=== PATIENT | female | born 1950 | race Caucasian/White ===

== ENCOUNTER 2024-07-16 06:25 | Inpatient (IN) | payer MEDICARE, OTHER ==
[2024-07-15 09:02] VITALS: BMI 22.1
[2024-07-16] MEDS ORDERED: Vancomycin 1 GM VIAL ONE (06:33)
[2024-07-16] MEDS ORDERED: Thrombin 5000 UNITS/5 ML VIAL ONE (06:33)
[2024-07-16] MEDS ORDERED: CEFAZOLIN 2 GM VIAL ONE (06:49)
[2024-07-16] MEDS ORDERED: Rocuronium Bromide 10 MG/ML (10ML VIAL) ONE (07:02)
[2024-07-16] MEDS ORDERED: PROPOFOL 20 ML ONE (07:02)
[2024-07-16] MEDS ORDERED: Lidocaine 2% PF 5 ML VIAL ONE (07:02)
[2024-07-16] MEDS ORDERED: Fentanyl 250 MCG/5 ML VIAL ONE ×2 (07:02→10:35)
[2024-07-16] MEDS ORDERED: MINERAL OIL/WHITE PETROLATUM 3.5 GM TUBE ONE (07:08)
[2024-07-16 07:30] LABS: #Basophils 0.03 10x3/uL (0.0-0.2); %Basophils 0.6 % (0.0-1.0); %Eosinophils 3.1 % (0.0-10.0); %Lymphocytes 36.4 % (21.0-51.0); %Monocytes 8.9 % (0.0-10.0); %Neutrophils 50.8 % (42.0-75.0); Hematocrit 43.4 % (36.0-47.0); Hemoglobin 14.1 g/dL (12.0-16.0); Mean Corpuscular HGB CONC 32.5 g/dL (32.0-36.0); Mean Corpuscular Hemoglobin 29.3 pg (27.0-31.0); Mean Corpuscular Volume 90.2 fL (78.0-98.0); Mean Platelet Volume 9.4 fL (7.4-10.4); Platelet Count 218 10x3/uL (130-400); Red Blood Cell (RBC) Count 4.81 mill/uL (4.20-5.40)
[2024-07-16 07:51] LABS: Anion Gap 10 mmol/L (10-20); BUN (Urea Nitrogen) 12 mg/dL (9.8-20.1); Calc. Creatinine Clearance 48 mL/min (70-130); Calcium 9.6 mg/dL (7.8-10.44); Carbon Dioxide 29 mmol/L (23-31); Chloride 105 mmol/L (98-107); Estimated GFR 67; Glucose 87 mg/dL (83-110); Potassium 3.7 mmol/L (3.5-5.1); Sodium 140 mmol/L (136-145)
[2024-07-16] MEDS ORDERED: PHENYLEPHRINE-NS 100 MCG/ML 10 ML SYRINGE ONE (07:53)
[2024-07-16] MEDS ORDERED: Glycopyrrolate 0.2 MG/ML 5 ML SYRINGE ONE (07:53)
[2024-07-16] MEDS ORDERED: Ondansetron PF 4 MG/2 ML Vial ONE (07:57)
[2024-07-16] MEDS ORDERED: Dexamethasone 4 mg/ml Vial ONE (07:57)
[2024-07-16] MEDS ORDERED: SUGAMMADEX SODIUM 200 MG/2 ML VIAL ONE (07:58)
[2024-07-16 08:03] LABS: INR-International Normal Ratio 0.9; Prothrombin Time 12.5 sec (12.0-14.7)
[2024-07-16 08:04] LABS: PTT 33.5 sec (22.9-36.1)
[2024-07-16] MEDS ORDERED: diphenhydrAMINE 25 MG CAP PO PRN (10:26)
[2024-07-16] MEDS ORDERED: Milk Of Magnesia 30 ML UDCUP PO PRN (10:26)
[2024-07-16] MEDS ORDERED: Mag-Al 1200 mg/1200 mg/30 ML UDCUP PO PRN (10:26)
[2024-07-16] MEDS ORDERED: Ondansetron PF 4 MG/2 ML Vial IVP PRN (10:26)
[2024-07-16] MEDS ORDERED: Acetaminophen/Codeine 30-300mg Tablet PO PRN (10:26)
[2024-07-16] MEDS ORDERED: HYDROcodone/Acetaminophen 5/325 mg Tablet PO PRN (10:28)
[2024-07-16] MEDS ORDERED: tiZANidine HCl 4 MG TAB PO PRN (10:29)
[2024-07-16] MEDS ORDERED: hydrALAZINE 20 MG/ML VIAL SLOW IVP PRN (10:30)
[2024-07-16] MEDS ORDERED: Lorazepam 1 MG TAB PO PRN (10:30)
[2024-07-16] MEDS ORDERED: Morphine 4 MG/ML VIAL ONE (10:54)
[2024-07-16] MEDS ORDERED: Morphine Sulfate 2 MG/ML SYRINGE SLOW IVP PRN (12:00)
[2024-07-16] MEDS ORDERED: PACU-Morphine 4MG/ML VIAL SLOW IVP PRN (12:00)
[2024-07-16] MEDS: Morphine 2 MG/ML VIAL SLOW IVP PRN (13:03)
[2024-07-16] MEDS: Sodium Chloride 0.9% 1,000 ML IV SCH (14:21)
[2024-07-16] MEDS: CEFAZOLIN 2 GM in Sodium Chloride 0.9% 100 ML IVPB SCH (15:08)
[2024-07-16] MEDS: FLU (Fluad Triv) TS24-25 (65UP)/MF59C/PF 45 MCG/0.5 ML Syringe IM ONE (15:09)
[2024-07-16] MEDS: traMADol HCl 50 MG TAB PO PRN (17:56)
[2024-07-17] MEDS: Acetaminophen 325 MG TAB PO PRN (00:12)
[2024-07-17 06:12] VITALS: TEMP 98.7
[2024-07-17 09:16] VITALS: BP 158/64
[2024-07-17] MEDS: Losartan 25 MG TAB PO SCH (09:53)
[2024-07-17] MEDS: Sertraline 100 MG TAB PO SCH (09:53)
== END 2024-07-17 10:37 | disposition home or self-care (01) | DRG 473 ==
LOC: SURG A 06:25 → SURG B 12:35
PROVIDERS: ADMIT Surgery; ATTEND Surgery
PROC: 0RG20A0 Fusion of 2 or more Cervical Vertebral Joints with Interbody Fusion Device, Anterior Approach, Anterior Column, Open Approach (ICD-10-PCS; principal; 2024-07-16)
PROC: 0RB30ZZ Excision of Cervical Vertebral Disc, Open Approach (ICD-10-PCS; 2024-07-16)
PROC: 01N10ZZ Release Cervical Nerve, Open Approach (ICD-10-PCS; 2024-07-16)
DX: M48.02 Spinal stenosis, cervical region (principal); M54.12 Radiculopathy, cervical region; Z88.8 Allergy status to other drugs, medicaments and biological substances; Z79.899 Other long term (current) drug therapy; Z79.82 Long term (current) use of aspirin
CPT/HCPCS: 80048; 85025; 85610; 85730; 93005; 93010; C1713; J1100; J2272; J2405; J2704; J3010; J3370; J7030